=== PATIENT | female | born 1975 | race Caucasian/White ===

== ENCOUNTER 2021-11-06 10:30 | Day surgery (SDC) | payer OTHER ==
[2021-11-05 18:46] VITALS: BMI 25.4
[2021-11-06 12:26] VITALS: TEMP 97.9
[2021-11-06 13:50] VITALS: RESP 18
[2021-11-06 14:01] VITALS: BP 141/91; PULSE 81
== END 2021-11-06 14:05 | disposition home or self-care (01) ==
LOC: FASU-ENDO 10:30
PROVIDERS: ATTEND Internal Medicine
PROC: 0DB68ZX Excision of Stomach, Via Natural or Artificial Opening Endoscopic, Diagnostic (ICD-10-PCS; 2021-11-06)
PROC: 0DB48ZX Excision of Esophagogastric Junction, Via Natural or Artificial Opening Endoscopic, Diagnostic (ICD-10-PCS; 2021-11-06)
PROC: 0DB98ZX Excision of Duodenum, Via Natural or Artificial Opening Endoscopic, Diagnostic (ICD-10-PCS; principal; 2021-11-06 13:28)
DX: K29.50 Unspecified chronic gastritis without bleeding (principal); K20.90 Esophagitis, unspecified without bleeding; R19.4 Change in bowel habit
CPT/HCPCS: 84703; 87426; 88305-TC; 88342-TC; C9803-CS; U0003; U0005